=== PATIENT | female | born 1970 | race Caucasian/White ===

== ENCOUNTER 2021-06-17 20:45 | Emergency (ER) | payer BC, MEDICAID ==
[2021-06-17] MEDS ORDERED: PROTONIX 40 MG IV IV ONE ×2 (21:01→21:13)
[2021-06-17] MEDS ORDERED: Zofran 4 MG/2 ML VIAL IV ONE (21:01)
[2021-06-17] MEDS ORDERED: Sodium Chloride 0.9% 1000 ML 1,000 ML IV STA ×2 (21:01→23:20)
--- NOTE | 2021-06-17 21:09 | ERPHSYRPT ---
- History of Present Illness Time Seen by Provider: 06/17/21 21:01 Historian: patient Exam Limitations: no limitations Physician History: 51-year-old female with history of colon cancer status post resection presented in the ER with chief complaint of off-and-on abdominal pain with vomiting/diarrhea since . Patient reported multiple episodes of nonprojectile, nonbilious vomiting without hematemesis and multiple loose stools. She also reports worsening of her symptoms for the last couple of days. Unable to hold anything down. She also has low-grade fever and chills. Today she started to have some shortness of breath and chest discomfort. Patient is tachycardic on presentation with heart rate in 150s and shortness of breath with difficulty completing a full sentence. Timing/Duration: week(s), intermittent, gradual onset, worse Activities at Onset: rest Quality: aching, dullness Abdominal Pain Onset Location: RUQ, RLQ, periumbilical Pain Radiation: no radiation Severity of Pain-Max: moderate Severity of Pain-Current: moderate Modifying Factors: Worsens With: vomiting Associated Symptoms: diarrhea, fever/chills, fatigue, nausea, shortness of breath, vomiting, weakness Allergies/Adverse Reactions: No Known Drug Allergies Allergy (Unverified 06/17/21 21:06) Home Medications: No Reportable Medications [No Reported Medications] 06/17/21 [History] - Review of Systems Constitutional: Fever, Chills, Fatigue, Weakness Eyes: No Symptoms Ears, Nose, & Throat: No Symptoms Respiratory: Cough, Dyspnea, Dyspnea on Exertion ([place]) Cardiac: Chest Pain, Palpitations Abdominal/Gastrointestinal: Abdominal Pain, Nausea, Vomiting, Diarrhea Genitourinary Symptoms: No Symptoms Musculoskeletal: No Symptoms Skin: No Symptoms Neurological: No Symptoms Psychological: No Symptoms Endocrine: No Symptoms Hematologic/Lymphatic: No Symptoms Immunological/Allergic: No Symptoms - Nursing Vital Signs Nursing Vital Signs: Initial Vital Signs Temperature 101.1 F 06/17/21 20:46 Pulse Rate 145 H 06/17/21 20:46 Respiratory Rate 20 06/17/21 20:46 Blood Pressure 141/92 06/17/21 20:46 O2 Sat by Pulse Oximetry 95 06/17/21 20:46 Pain Scale Pain Intensity 4 - Physical Exam General Appearance: mild distress, alert, anxiety Eye Exam: PERRL/EOMI, eyes nml inspection Ears, Nose, Throat Exam: TMs normal, dry mucous membranes, pharyngeal erythema Neck Exam: normal inspection, non-tender, supple, full range of motion Respiratory Exam: normal breath sounds, lungs clear Cardiovascular Exam: normal heart sounds, tachycardia Gastrointestinal/Abdomen Exam: soft, tenderness (Right upper and lower quadrant), guarding, No normal bowel sounds Back Exam: normal inspection, normal range of motion Extremity Exam: normal inspection, normal range of motion Neurologic Exam: alert, oriented x 3, cooperative Skin Exam: normal color SpO2 Interpretation: normal SpO2: 96 O2 Delivery: Room Air - Course EKG Interpreted by Me: RATE ([id number]), Sinus Tach, NORMAL AXIS, NORMAL INTERVALS, Q-wave (Inferolateral), Non-specific ST Changes Ordered Tests: Active Orders 24 hr Category Date Time Status EKG-ER Only STAT Care 06/17/21 21:01 Active IV Insertion STAT Care 06/17/21 21:01 Active NPO (ED) STAT Care 06/17/21 21:01 Active ABDOMEN AND PELVIS W CONTRAST [CT] Stat Exams 06/17/21 21:02 Taken CHEST WITH CONTRAST [CT] Stat Exams 06/17/21 21:03 Taken BLOOD CULTURE Stat Lab 06/17/21 21:20 Received CBC W DIFF Stat Lab 06/17/21 21:20 Completed CMP Stat Lab 06/17/21 21:20 Completed LIPASE Stat Lab 06/17/21 21:20 Completed Lactic Acid Stat Lab 06/17/21 21:01 Completed Lactic Acid Stat Lab 06/18/21 00:22 Completed MAGNESIUM Stat Lab 06/17/21 21:20 Completed TROPONIN Q3H Lab 06/17/21 21:20 Completed TROPONIN Q3H Lab 06/18/21 00:15 Ordered TROPONIN Q3H Lab 06/18/21 03:15 Ordered TROPONIN Q3H Lab 06/18/21 06:15 Ordered TROPONIN Q3H Lab 06/18/21 09:15 Ordered UA W/RFX UR CULTURE Stat Lab 06/17/21 21:02 Ordered Medication Summary Generic Name Dose Route Start Last Admin Trade Name Freq PRN Reason Stop Dose Admin Potassium Chloride 20 meq in 100 mls @ 50 mls/hr 06/17/21 23:45 06/18/21 00:21 Potassium Chloride 20 Meq In Water 100ml IV 06/18/21 03:44 50 mls/hr Q2H CRISS Administration Potassium Chloride/Sodium Chloride 1,000 mls @ 125 mls/hr 06/17/21 23:45 Sodium Chloride 0.9% W/ 20 Meq Kcl/Liter IV 07/17/21 23:44 .Q8H CRISS Discontinued Medications Generic Name Dose Route Start Last Admin Trade Name Jamesq PRN Reason Stop Dose Admin Acetaminophen 975 mg 06/17/21 21:14 06/17/21 21:16 Acetaminophen 325 Mg Tablet PO 06/17/21 21:15 975 mg STAT STA Administration Acetaminophen Confirm 06/17/21 21:13 Acetaminophen 325 Mg Tablet Administered 06/17/21 21:14 Dose 975 mg .ROUTE .STK-MED ONE Sodium Chloride 1,000 mls @ 999 mls/hr 06/17/21 21:01 06/17/21 21:15 Sodium Chloride 0.9% 1000 Ml IV 06/17/21 22:01 999 mls/hr .Q1H1M STA Administration Sodium Chloride Confirm 06/17/21 21:13 Sodium Chloride 0.9% 1000 Ml Administered 06/17/21 21:14 Dose 1,000 mls @ ud .ROUTE .STK-MED ONE Sodium Chloride 1,000 mls @ 999 mls/hr 06/17/21 23:20 06/17/21 23:27 Sodium Chloride 0.9% 1000 Ml IV 06/18/21 00:20 999 mls/hr .Q1H1M STA Administration Sodium Chloride Confirm 06/17/21 23:19 Sodium Chloride 0.9% 1000 Ml Administered 06/17/21 23:20 Dose 1,000 mls @ ud .ROUTE .STK-MED ONE Piperacillin Sod/Tazobactam 100 mls @ 200 mls/hr 06/17/21 23:54 06/18/21 00:21 Sod 3.375 gm/ Sodium Chloride IV 06/18/21 00:23 200 mls/hr STAT ONE Administration Sodium Chloride Confirm 06/18/21 00:15 Sodium Chloride 100ml Mini-Bag Plus Administered 06/18/21 00:16 Dose 100 mls @ ud IV .STK-MED ONE Ondansetron HCl 4 mg 06/17/21 21:01 06/17/21 21:15 Ondansetron Hcl 4 Mg/2 Ml Vial IV 06/17/21 21:02 4 mg STAT ONE Administration Ondansetron HCl Confirm 06/17/21 21:13 Ondansetron Hcl 4 Mg/2 Ml Vial Administered 06/17/21 21:14 Dose 4 mg .ROUTE .STK-MED ONE Pantoprazole Sodium 40 mg 06/17/21 21:01 06/17/21 21:15 Pantoprazole 40 Mg Vial IV 06/17/21 21:02 40 mg STAT ONE Administration Pantoprazole Sodium Confirm 06/17/21 21:13 Pantoprazole 40 Mg Vial Administered 06/17/21 21:14 Dose 40 mg IV .STK-MED ONE Piperacillin Sod/Tazobactam Sod Confirm 06/18/21 00:15 Piperacillin/Tazobactam Sodium 3.375 Gm Vial Administered 06/18/21 00:16 Dose 3.375 gm IV .STK-MED ONE Lab/Rad Data: Laboratory Result Diagrams 06/17/21 21:20 06/17/21 21:20 Laboratory Results 06/18/21 06/17/21 06/17/21 Range/Units 00:22 21:20 21:20 WBC (4.0-10.5) K/mm3 RBC (4.1-5.4) M/mm3 Hgb (12.0-16.0) gm/dl Hct (35-47) % MCV (78-100) fl MCH (26-32) pg MCHC (32-36) g/dl RDW (11.5-14.0) % Plt Count (150-450) K/mm3 MPV (7.5-11.0) fl Gran % (36.0-66.0) % Eos # (Auto) (0-0.5) Absolute Lymphs (auto) (1.0-4.6) Absolute Monos (auto) (0.0-1.3) Lymphocytes % (24.0-44.0) % Monocytes % (0.0-12.0) % Eosinophils % (0.00-5.0) % Basophils % (0.0-0.4) % Absolute Granulocytes (1.4-6.9) Basophils # (0-0.4) Sodium 139 (137-145) mmol/L Potassium 3.1 L (3.5-5.1) mmol/L Chloride 96 L (98-107) mmol/L Carbon Dioxide 29 (22-30) mmol/L Anion Gap 16.8 H (5-15) MEQ/L BUN 14 (7-17) mg/dL Creatinine 1.12 H (0.52-1.04) mg/dL Estimated GFR 54.5 ML/MIN Glucose 145 H (74-106) mg/dL Lactic Acid 0.9 (0.4-2.0) Calcium 9.5 (8.4-10.2) mg/dL Magnesium 1.8 (1.6-2.3) mg/dL Total Bilirubin 1.40 H (0.2-1.3) mg/dL AST 41 H (14-36) U/L ALT 31 (0-35) U/L Alkaline Phosphatase 129 H (38-126) U/L Troponin I < 0.012 (0.000-0.034) ng/mL Serum Total Protein 6.8 (6.3-8.2) g/dL Albumin 3.9 (3.5-5.0) g/dL Lipase 57 (23-300) U/L 06/17/21 06/17/21 Range/Units 21:20 21:01 WBC 10.5 (4.0-10.5) K/mm3 RBC 5.05 (4.1-5.4) M/mm3 Hgb 14.9 (12.0-16.0) gm/dl Hct 45.5 (35-47) % MCV 90.1 (78-100) fl MCH 29.5 (26-32) pg MCHC 32.7 (32-36) g/dl RDW 13.2 (11.5-14.0) % Plt Count 256 (150-450) K/mm3 MPV 10.6 (7.5-11.0) fl Gran % 89.9 H (36.0-66.0) % Eos # (Auto) 0.06 (0-0.5) Absolute Lymphs (auto) 0.79 L (1.0-4.6) Absolute Monos (auto) 0.18 (0.0-1.3) Lymphocytes % 7.6 L (24.0-44.0) % Monocytes % 1.7 (0.0-12.0) % Eosinophils % 0.6 (0.00-5.0) % Basophils % 0.2 (0.0-0.4) % Absolute Granulocytes 9.41 H (1.4-6.9) Basophils # 0.02 (0-0.4) Sodium (137-145) mmol/L Potassium (3.5-5.1) mmol/L Chloride (98-107) mmol/L Carbon Dioxide (22-30) mmol/L Anion Gap (5-15) MEQ/L BUN (7-17) mg/dL Creatinine (0.52-1.04) mg/dL Estimated GFR ML/MIN Glucose (74-106) mg/dL Lactic Acid 3.3 H (0.4-2.0) Calcium (8.4-10.2) mg/dL Magnesium (1.6-2.3) mg/dL Total Bilirubin (0.2-1.3) mg/dL AST (14-36) U/L ALT (0-35) U/L Alkaline Phosphatase (38-126) U/L Troponin I (0.000-0.034) ng/mL Serum Total Protein (6.3-8.2) g/dL Albumin (3.5-5.0) g/dL Lipase (23-300) U/L - Progress Progress: improved, pain not gone completely, re-examined Progress Note: 06/18/21 00:40 51-year-old is evaluated for right-sided abdominal pain with vomiting, fever with tachycardia and some shortness of breath. She is given fluid bolus x2 and her heart rate improved in 90s. She has a normal white count, lactate of 3.3, mild hypokalemia for which she is getting replacement. Obtain CTA chest which is negative for pulmonary embolismed [place] but has some septal patchy groundglass opacity around the lungs suspicious for aspiration pneumonitis versus atypical pneumonia and CT abdomen pelvis with contrast showed perforated appendicitis with periappendiceal abscess. She is given a dose of Zosyn. Discussed with Dr. Carmichael, recommended admission but no beds are available here and at [facility]. Called [facility], discussed with Dr. Fernandez, reviewed history, work-up and patient is accepted for transfer. Plan discussed with patient which he understand and agrees with it. Discussed with : Enrike Cottrell Counseled pt/family regarding: lab results, diagnosis, rad results - Departure Departure Disposition: Transfer Clinical Impression: Perforated appendix, Atypical pneumonia, Hypokalemia Condition: Stable Critical Care Time: Yes Critical Care Time(excluding separately billable procedures): Critical 30-74 mins Referrals: Provider,Unknown [NON-STAFF PHY W/O PRIVILEGES] - Follow up/PCP as directed
[2021-06-17] MEDS ORDERED: Zofran 4 MG/2 ML VIAL ONE (21:13)
[2021-06-17] MEDS ORDERED: TYLENOL 325 MG ONE (21:13)
[2021-06-17] MEDS ORDERED: Sodium Chloride 0.9% 1000 ML 1,000 ML ONE ×2 (21:13→23:19)
[2021-06-17] MEDS ORDERED: TYLENOL 325 MG PO STA (21:14)
[2021-06-17 21:38] LABS: Absolute Neutrophil Ct (ANC) 9.41 (1.4-6.9); BASOPHIL % 0.2 % (0.0-0.4); Basophil (Absolute #) 0.02 (0-0.4); Eosinophil % 0.6 % (0.00-5.0); Eosinophil (Absolute #) 0.06 (0-0.5); Hematocrit 45.5 % (35-47); Hemoglobin 14.9 gm/dl (12.0-16.0); Lymphocyte (Absolute #) 0.79 (1.0-4.6); Lymphocytes % 7.6 % (24.0-44.0); Mean Cell Volume 90.1 fl (78-100); Mean Corpuscular Hemoglobin 29.5 pg (26-32); Mean Corpuscular Hgb Concent. 32.7 g/dl (32-36); Mean Platelet Volume 10.6 fl (7.5-11.0); Monocyte (Absolute #) 0.18 (0.0-1.3); Monocytes % 1.7 % (0.0-12.0); Neutrophil % 89.9 % (36.0-66.0); Platelet Count 256 K/mm3 (150-450); Red Blood Count 5.05 M/mm3 (4.1-5.4); Red Cell Distribution Width 13.2 % (11.5-14.0); White Blood Count 10.5 K/mm3 (4.0-10.5)
[2021-06-17 21:49] LABS: ALBUMIN 3.9 g/dL (3.5-5.0); ANION GAP 16.8 MEQ/L (5-15); BILIRUBIN,TOTAL 1.4 mg/dL (0.2-1.3); Calcium 9.5 mg/dL (8.4-10.2); Creatinine 1 1.12 mg/dL (0.52-1.04); EST GLOMERULAR FILTRATION RATE 54.5 ML/MIN; MAGNESIUM 1.8 mg/dL (1.6-2.3); Total Protein 6.8 g/dL (6.3-8.2)
[2021-06-17 21:51] LABS: Potassium 3.1 mmol/L (3.5-5.1)
[2021-06-17] MEDS ORDERED: Sodium Chloride 0.9% W/ 20 mEq KCl/LITER 1,000 ML IV SCH (23:45)
[2021-06-17] MEDS ORDERED: POTASSIUM CHLORIDE 20 mEq IN WATER 100ML 20 MEQ/100 ML BAG IV SCH (23:45)
[2021-06-17] MEDS ORDERED: Zosyn 3.375 GM Vial 3.375 GM in Sodium Chloride 100ML MINI-BAG PLUS 100 ML IV ONE (23:54)
[2021-06-18] MEDS ORDERED: Sodium Chloride 100ML MINI-BAG PLUS 100 ML IV ONE (00:15)
[2021-06-18] MEDS ORDERED: Zosyn 3.375 GM Vial IV ONE (00:15)
[2021-06-18] MEDS ORDERED: POTASSIUM CHLORIDE 20 mEq IN WATER 100ML 100 ML IV ONE (00:16)
[2021-06-18 01:07] VITALS: BP 115/70; PULSE 87; O2SAT 95
--- NOTE | 2021-06-18 07:49 | XRAY ---
Indication: Fever, nausea, vomiting, and diarrhea. History of colon cancer 2000 with bowel resection. Multiple contiguous axial images obtained through the chest using 80 cc Isovue 370 contrast and PE protocol. Comparison: None. There is suboptimal opacification of the pulmonary arteries limiting evaluation for pulmonary embolus. No obvious pulmonary embolus. Heart not enlarged. Aorta is normal in course and caliber. No pathologic mediastinal/hilar lymphadenopathy. Lungs demonstrates minimal bilateral diffuse peripheral patchy groundglass airspace disease without consolidation/effusion. Mild bibasilar dependent atelectasis. Bony thorax intact. CT abdomen/pelvis reported separately. Impression: 1. Pulmonary embolus evaluation limited due to suboptimal opacification. No obvious pulmonary embolus. 2. Bilateral patchy airspace disease. Commonly reported imaging features of Covid 19 pneumonia are present. Other processes such as influenza pneumonia and organizing pneumonia, as can be seen with drug toxicity and connective tissue disease, can cause a similar imaging pattern. Comment: Preliminary interpretation made by [facility]. No critical discrepancy.
--- NOTE | 2021-06-18 07:53 | XRAY ---
Indication: Fever, nausea, vomiting, and diarrhea. History of colon cancer 1999 with bowel resection. Multiple contiguous axial images obtained through the abdomen and pelvis using 80 cc Isovue 370 contrast. Comparison: None. CT chest reported severally. Noncontrasted stomach and bowel loops appear nonobstructed. Abnormal prominent enhancing appendix up to 11 mm diameter with periappendiceal stranding favoring appendicitis. Tip of appendix demonstrates a 3.3 cm fluid collection with peripheral stranding favoring abscess. No free air. The right lobe liver demonstrates a 4 mm cyst. Remaining liver, gallbladder, pancreas, spleen, adrenal glands, kidneys, ureters, bladder, uterus, and aorta are unremarkable. No pathologic retroperitoneal lymphadenopathy. Osseous structures intact. Impression: 1. CT findings favoring acute pancreatitis with periappendiceal abscess. 2. Incidental tiny hepatic cyst. Comment: Preliminary interpretation made by [facility]. No critical discrepancy.
== END 2021-06-18 01:25 | disposition short-term general hospital (02) ==
LOC: ED 20:45
DX: K35.33 Acute appendicitis with perforation, localized peritonitis, and gangrene, with abscess (principal); J18.9 Pneumonia, unspecified organism; E87.6 Hypokalemia; R10.33 Periumbilical pain; R11.2 Nausea with vomiting, unspecified; R19.7 Diarrhea, unspecified; R50.9 Fever, unspecified; R00.0 Tachycardia, unspecified
CPT/HCPCS: 36000; 36415; 71260; 74177; 80053; 83605; 83690; 83735; 84484; 85025; 87040; 93005; 96374; 96375; 99285; 99291; J2405; J3480; A9270-GY

== ENCOUNTER 2022-04-20 14:44 | Observation (INO) | payer MEDICAID, OTHER ==
[2022-04-20] MEDS ORDERED: CLONIDINE 0.1 MG TABLET PO ONE (15:27)
--- NOTE | 2022-04-20 15:29 | ERPHSYRPT ---
- History of Present Illness Time Seen by Provider: 04/20/22 14:58 Source: patient Exam Limitations: no limitations Patient Subjective Stated Complaint: HTN Triage Nursing Assessment: Patient ambulated back to ED and transferred self to bed. Patient A+O X3. Patient's skin pink, warm and dry. Patient complains of HTN for the past two days. Patient states she had steroid injections in cinda knees on 04/18/2022. Patient states she has been jittery since. Patient states her blood pressure last taken was 149/110. Patient denies pain or discomfort. Physician History: 52 years old female with history of osteoarthritis needing intra-articular injections in both knees couple of days ago where it was found that her blood pr essure was elevated, has been monitoring at home and today was 188/110 without any chest pain palpitations shortness of breath. Denies any dizziness lightheadedness, blurry vision, difficulty speech or focal numbness tingling weakness. No abdominal pain nausea or vomiting. Patient reports after checking her blood pressure repeatedly she was really anxious. She takes essential oils and beet roots but no other medications. Timing/Duration: day(s), intermittent, worse Severity: moderate Associated Symptoms: denies symptoms Allergies/Adverse Reactions: No Known Drug Allergies Allergy (Verified 04/20/22 14:51) Home Medications: No Reportable Medications [No Reported Medications] 06/17/21 [History] Hx Tetanus, Diphtheria Vaccination/Date Given: No Hx Influenza Vaccination/Date Given: No Hx Pneumococcal Vaccination/Date Given: No Immunizations Up to Date: Yes Travel Risk - International Travel Have you traveled outside of the country in past 3 weeks: No - Coronavirus Screening Are you exhibiting any of the following symptoms?: No Close contact with a COVID-19 positive Pt in past 14-21 Days: No - Vaccine Status Have you recieved a Covid-19 vaccination: No - Review of Systems Constitutional: No Symptoms Eyes: No Symptoms Ears, Nose, & Throat: No Symptoms Respiratory: No Symptoms Cardiac: No Symptoms Abdominal/Gastrointestinal: No Symptoms Genitourinary Symptoms: No Symptoms Musculoskeletal: Arthralgias Skin: No Symptoms Neurological: No Symptoms Endocrine: No Symptoms Hematologic/Lymphatic: No Symptoms Immunological/Allergic: No Symptoms - Past Medical History Pertinent Past Medical History: Yes Neurological History: Migraines ENT History: No Pertinent History Cardiac History: No Pertinent History Respiratory History: No Pertinent History Endocrine Medical History: No Pertinent History Musculoskeletal History: Arthritis GI Medical History: Colorectal Cancer, GERD History: No Pertinent History Psycho-Social History: No Pertinent History Female Reproductive Disorders: No Pertinent History - Past Surgical History Past Surgical History: Yes Neuro Surgical History: No Pertinent History Cardiac: No Pertinent History Respiratory: No Pertinent History Gastrointestinal: Bowel Surgery, Colon Resection Genitourinary: No Pertinent History Musculoskeletal: No Pertinent History Female Surgical History: Other Other Surgical History: ovaries removed - Social History Smoking Status: Never smoker Exposure to second hand smoke: Yes Drug Use: none Patient Lives Alone: No - Nursing Vital Signs Nursing Vital Signs: Initial Vital Signs Temperature 97.8 F 04/20/22 14:52 Pulse Rate 93 H 04/20/22 14:52 Respiratory Rate 18 04/20/22 14:52 Blood Pressure 174/103 04/20/22 14:52 O2 Sat by Pulse Oximetry 99 04/20/22 14:52 Pain Scale Pain Intensity 0 - Physical Exam General Appearance: no apparent distress, alert Eye Exam: PERRL/EOMI, eyes nml inspection Ears, Nose, Throat Exam: normal ENT inspection, TMs normal, pharynx normal Neck Exam: normal inspection, non-tender, supple, full range of motion Respiratory Exam: normal breath sounds, lungs clear Cardiovascular Exam: regular rate/rhythm, normal heart sounds Gastrointestinal/Abdomen Exam: soft, normal bowel sounds, No tenderness Back Exam: normal inspection, normal range of motion Extremity Exam: normal inspection, normal range of motion Neurologic Exam: alert, oriented x 3, cooperative, artist relationship manager II-XII nml as tested, nml cerebellar function, nml station & gait, sensation nml, No normal mood/affect (Anxious) Skin Exam: normal color SpO2 Interpretation: normal SpO2: 99 O2 Delivery: Room Air Ordered Tests: Active Orders 24 hr Category Date Time Status EKG-ER Only STAT Care 04/20/22 15:26 Active Telemetry q4h Care 04/20/22 16:25 Active CHEST 1 VIEW (PORTABLE) Stat Exams 04/20/22 15:26 Completed CBC W DIFF Stat Lab 04/20/22 15:15 Completed CK-Creatinine Phosphokinase Stat Lab 04/20/22 15:15 Completed CMP Stat Lab 04/20/22 15:15 Completed NT PRO BNP Stat Lab 04/20/22 15:15 Completed TROPONIN Q4H Lab 04/20/22 15:15 Completed TROPONIN Q4H Lab 04/20/22 19:30 Ordered TROPONIN Q4H Lab 04/20/22 23:30 Ordered Medication Summary Generic Name Dose Route Start Last Admin Trade Name Tim PRN Reason Stop Dose Admin Aspirin 324 mg 04/20/22 16:58 Aspirin 81 Mg Tab.Chew PO 04/20/22 16:59 STAT ONE Potassium Chloride 20 meq in 100 mls @ 50 mls/hr 04/20/22 16:30 04/20/22 16:32 Potassium Chloride 20 Meq In Water 100ml IV 04/20/22 20:29 Not Given Q2H CRISS Discontinued Medications Generic Name Dose Route Start Last Admin Trade Name Tim PRN Reason Stop Dose Admin Clonidine 0.1 mg 04/20/22 15:27 04/20/22 15:42 Clonidine Hcl 0.1 Mg Tablet PO 04/20/22 15:28 0.1 mg STAT ONE Administration Clonidine Confirm 04/20/22 15:37 Clonidine Hcl 0.1 Mg Tablet Administered 04/20/22 15:38 Dose 0.1 mg .ROUTE .STK-MED ONE Potassium Chloride 40 meq 04/20/22 16:25 04/20/22 16:31 Potassium Chloride Tab 10 Meq Tab PO 04/20/22 16:26 Not Given STAT ONE Lab/Rad Data: Laboratory Result Diagrams 04/20/22 15:15 04/20/22 15:15 Laboratory Results 04/20/22 04/20/22 04/20/22 Range/Units 15:15 15:15 15:15 WBC 12.4 H (4.0-10.5) x10^3/uL RBC 4.64 (4.1-5.4) x10^6/uL Hgb 13.9 (12.0-16.0) g/dL Hct 41.3 (35-47) % MCV 89.0 (78-100) fL MCH 30.0 (26-32) pg MCHC 33.7 (32-36) g/dL RDW 12.4 (11.5-14.0) % Plt Count 280 (150-450) x10^3/uL MPV 10.6 (7.5-11.0) fL Gran % 86.4 H (36.0-66.0) % Immature Gran % (Auto) 1.0 H (0.00-0.4) % Nucleat RBC Rel Count 0.0 (0.00-0.1) % Eos # (Auto) 0 (0-0.5) x10^3/uL Immature Gran # (Auto) 0.13 H (0.00-0.03) x10^3u/L Absolute Lymphs (auto) 1.10 (1.0-4.6) x10^3/uL Absolute Monos (auto) 0.44 (0.0-1.3) x10^3/uL Absolute Nucleated RBC 0.00 (0.00-0.01) x10^3u/L Lymphocytes % 8.9 L (24.0-44.0) % Monocytes % 3.6 (0.0-12.0) % Eosinophils % 0.0 (0.00-5.0) % Basophils % 0.1 (0.0-0.4) % Absolute Granulocytes 10.71 H (1.4-6.9) x10^3/uL Basophils # 0.01 (0-0.4) x10^3/uL Sodium 139 (137-145) mmol/L Potassium 3.7 (3.5-5.1) mmol/L Chloride 103 (98-107) mmol/L Carbon Dioxide 29 (22-30) mmol/L Anion Gap 10.9 (5-15) MEQ/L BUN 25 H (7-17) mg/dL Creatinine 0.89 (0.52-1.04) mg/dL Estimated GFR > 60.0 ML/MIN Glucose 113 H (74-106) mg/dL Calcium 9.2 (8.4-10.2) mg/dL Total Bilirubin 0.90 (0.2-1.3) mg/dL AST 19 (14-36) U/L ALT 17 (0-35) U/L Alkaline Phosphatase 66 (38-126) U/L Creatine Kinase 61 (30-135) U/L Troponin I 0.051 H* (0.000-0.034) ng/mL NT-Pro-B Natriuret Pep 225 (0-900) pg/mL Serum Total Protein 7.5 (6.3-8.2) g/dL Albumin 4.5 (3.5-5.0) g/dL - Progress Progress: unchanged Progress Note: 04/20/22 16:59 Patient does not have any chest pain. EKG normal sinus rhythm without any ST elevations. Chest x-ray negative for any acute cardiopulmonary findings. Init ial troponin 0.051. Patient is given clonidine and pressure improved in 150s. She does not have any respiratory distress/difficulty breathing at all. Elevation in troponin could be secondary to uncontrolled hypertension. Discussed with , reviewed history, work-up and patient is excepted for admission. Counseled pt/family regarding: lab results, diagnosis, rad results - Departure Departure Disposition: Observation Clinical Impression: Uncontrolled hypertension, Elevated troponin Condition: Stable Critical Care Time: No Referrals: DOCTOR,NO FAMILY [Primary Care Provider] - Follow up/PCP as directed
[2022-04-20 15:33] LABS: Absolute Neutrophil Ct (ANC) 10.71 x10^3/uL (1.4-6.9); Basophil (Absolute #) 0.01 x10^3/uL (0-0.4); Eosinophil (Absolute #) 0 x10^3/uL (0-0.5); Hematocrit 41.3 % (35-47); Hemoglobin 13.9 g/dL (12.0-16.0); Lymphocytes % 8.9 % (24.0-44.0); Mean Corpuscular Hgb Concent. 33.7 g/dL (32-36); Mean Platelet Volume 10.6 fL (7.5-11.0); Monocyte (Absolute #) 0.44 x10^3/uL (0.0-1.3); Monocytes % 3.6 % (0.0-12.0); Neutrophil % 86.4 % (36.0-66.0); Platelet Count 280 x10^3/uL (150-450); Red Blood Count 4.64 x10^6/uL (4.1-5.4); Red Cell Distribution Width 12.4 % (11.5-14.0); White Blood Count 12.4 x10^3/uL (4.0-10.5)
[2022-04-20] MEDS ORDERED: CLONIDINE 0.1 MG TABLET ONE (15:37)
[2022-04-20 15:56] LABS: ALBUMIN 4.5 g/dL (3.5-5.0); ALKALINE PHOSPHATASE 66 U/L (38-126); ANION GAP 10.9 MEQ/L (5-15); BLOOD UREA NITROGEN 25 mg/dL (7-17); CHLORIDE 103 mmol/L (98-107); CK-Creatinine Phosphokinase 61 U/L (30-135); Calcium 9.2 mg/dL (8.4-10.2); Carbon Dioxide 29 mmol/L (22-30); Creatinine 1 0.89 mg/dL (0.52-1.04); EST GLOMERULAR FILTRATION RATE > 60.0 ML/MIN; Glucose 113 mg/dL (74-106); NT PRO BNP 225 pg/mL (0-900); Potassium 3.7 mmol/L (3.5-5.1); SGOT/AST 19 U/L (14-36); SGPT/ALT 17 U/L (0-35); SODIUM 139 mmol/L (137-145); Total Protein 7.5 g/dL (6.3-8.2)
[2022-04-20] MEDS ORDERED: Klor Con PO ONE (16:25)
[2022-04-20] MEDS: POTASSIUM CHLORIDE 20 mEq IN WATER 100ML 20 MEQ/100 ML BAG IV SCH ×2 (16:32→18:18)
--- NOTE | 2022-04-20 16:33 | XRAY ---
Indication: High blood pressure. Comparison: None Portable chest demonstrates normal heart, lungs, and bony thorax.
[2022-04-20] MEDS ORDERED: BABY ASPIRIN 81 MG CHEW PO ONE (16:58)
[2022-04-20] MEDS ORDERED: BABY ASPIRIN 81 MG CHEW ONE (17:01)
[2022-04-20 17:59] LABS: INFLUENZA A NEGATIVE (NEGATIVE); INFLUENZA B NEGATIVE (NEGATIVE); RESPIRATORY SYNCTIAL VIRUS NEGATIVE (Negative); SARS-CoV-2 Xpert Express NEGATIVE (NEGATIVE)
[2022-04-20] MEDS ORDERED: TYLENOL 325 MG PO PRN (18:29)
[2022-04-20] MEDS ORDERED: MORPHINE SULFATE 2 MG INJ IV PRN (18:29)
[2022-04-20] MEDS ORDERED: Zofran 4 MG/2 ML VIAL IV PRN (18:29)
[2022-04-20] MEDS ORDERED: DUONEB 0.5-3 MG/3 ml Neb IH PRN (18:29)
[2022-04-20] MEDS ORDERED: TRANDATE 20 MG/4 ML SYRINGE IV ONE (19:49)
[2022-04-20] MEDS: TRANDATE 20 MG/4 ML SYRINGE IV SCH (19:51)
[2022-04-20] MEDS ORDERED: Pepcid 20 MG PO ONE (21:00)
[2022-04-21 06:14] LABS: Absolute Neutrophil Ct (ANC) 6.94 x10^3/uL (1.4-6.9); Basophil (Absolute #) 0.01 x10^3/uL (0-0.4); Eosinophil (Absolute #) 0 x10^3/uL (0-0.5); Hematocrit 38.3 % (35-47); Hemoglobin 12.5 g/dL (12.0-16.0); Lymphocytes % 9.8 % (24.0-44.0); Mean Cell Volume 91.4 fL (78-100); Mean Corpuscular Hemoglobin 29.8 pg (26-32); Mean Corpuscular Hgb Concent. 32.6 g/dL (32-36); Mean Platelet Volume 10.6 fL (7.5-11.0); Monocyte (Absolute #) 0.34 x10^3/uL (0.0-1.3); Monocytes % 4.2 % (0.0-12.0); Platelet Count 223 x10^3/uL (150-450); Red Blood Count 4.19 x10^6/uL (4.1-5.4); Red Cell Distribution Width 12.3 % (11.5-14.0); White Blood Count 8.2 x10^3/uL (4.0-10.5)
[2022-04-21 06:29] LABS: ALBUMIN 3.9 g/dL (3.5-5.0); ALKALINE PHOSPHATASE 54 U/L (38-126); ANION GAP 8.8 MEQ/L (5-15); BLOOD UREA NITROGEN 26 mg/dL (7-17); CHLORIDE 104 mmol/L (98-107); Calcium 8.7 mg/dL (8.4-10.2); Carbon Dioxide 29 mmol/L (22-30); Creatinine 1 0.89 mg/dL (0.52-1.04); EST GLOMERULAR FILTRATION RATE > 60.0 ML/MIN; Glucose 132 mg/dL (74-106); Potassium 3.6 mmol/L (3.5-5.1); SGOT/AST 13 U/L (14-36); SGPT/ALT 15 U/L (0-35); SODIUM 138 mmol/L (137-145); Total Protein 6.5 g/dL (6.3-8.2)
[2022-04-21] MEDS ORDERED: TRANDATE 20 MG/4 ML SYRINGE IV PRN (06:50)
[2022-04-21] MEDS: TRANDATE 20 MG/4 ML SYRINGE IV SCH (06:50)
[2022-04-21] MEDS ORDERED: IMODIUM 2 MG PO PRN (07:25)
[2022-04-21] MEDS ORDERED: Pepcid 20 MG PO PRN (07:25)
[2022-04-21] MEDS: Protonix 40MG Tablet PO SCH (08:51)
[2022-04-21] MEDS: Lotrel 5/10 MG PO SCH (08:51)
[2022-04-21] MEDS: ENOXAPARIN SODIUM SQ SCH (08:52)
[2022-04-21] MEDS ORDERED: PROTONIX 40 MG IV IV SCH (10:00)
--- NOTE | 2022-04-21 11:03 | PCM.HP ---
History of Present Illness - Chief Complaint Chief Complaint: c/o very high blood pressure History of Present Illness: is a 52 year old female.with history of osteoarthritis needing intra- articular injections in both knees couple of days ago where it was found that her blood pressure was elevated, has been monitoring at home and today was 188/110 without any chest pain palpitations shortness of breath. Denies any dizziness lightheadedness, blurry vision, difficulty speech or focal numbness tingling weakness. No abdominal pain nausea or vomiting. Patient reports after checking her blood pressure repeatedly she was really anxious. She takes essential oils and beet roots but no other medications. Timing/Duration: day(s), intermittent, worse Severity: moderate Associated Symptoms: denies symptoms - Review of Systems Constitutional: No Fever, No Chills Eyes: No Symptoms Ears, Nose, & Throat: No Symptoms Respiratory: No Cough, No Short Of Breath Cardiac: No Chest Pain, No Edema, No Syncope Abdominal/Gastrointestinal: No Abdominal Pain, No Nausea, No Vomiting, No Diarrhea Genitourinary Symptoms: No Dysuria Musculoskeletal: No Back Pain, No Neck Pain Skin: No Rash Neurological: Headache, No Dizziness, No Focal Weakness, No Sensory Changes Psychological: No Symptoms Endocrine: No Symptoms Hematologic/Lymphatic: No Symptoms Immunological/Allergic: No Symptoms Medications & Allergies Home Medications: Home Medication List Famotidine [Pepcid] 20 mg PO BID PRN 04/20/22 [History Confirmed 04/20/22] Loperamide HCl 2 mg [Imodium 2 mg] 2 - 4 mg PO QID PRN 04/20/22 [History Confirmed 04/20/22] Allergies/Adverse Reactions: Allergies Allergy/AdvReac Type Severity Reaction Status Date / Time No Known Drug Allergies Allergy Verified 04/20/22 14:51 - Past Medical History Past Medical History: Yes Neurological History: Migraines ENT History: No Pertinent History Cardiac History: No Pertinent History Respiratory History: No Pertinent History Endocrine Medical History: No Pertinent History Musculoskelatal History: Arthritis GI Medical History: Colorectal Cancer, GERD History: No Pertinent History Pyscho-Social History: No Pertinent History Reproductive Disorders: No Pertinent History - Female History Are you now?: No - Past Surgical History Past Surgical History: Yes Neuro Surgical History: No Pertinent History Cardiac History: No Pertinent History Respiratory Surgery: No Pertinent History GI Surgical History: Bowel Surgery, Colon Resection Genitourinary Surgical Hx: No Pertinent History Musculskeletal Surgical Hx: No Pertinent History Female Surgical History: Other Other Surgical History: ovaries removed - Social History Smoking Status: Never smoker Exposure to second hand smoke: Yes Alcohol: None Drug Use: none - Physical Exam Vital Signs: Vital Signs - 24 hr Temp Pulse Resp BP BP Pulse Ox 04/21/22 08:00 97.7 F 82 19 158/85 96 04/21/22 04:00 97.5 F 76 16 137/84 98 04/20/22 23:47 97.8 F 69 18 172/91 98 04/20/22 22:14 69 172/97 04/20/22 20:34 80 18 98 04/20/22 20:00 98.9 F 88 18 187/98 97 04/20/22 19:51 187/98 88 L 04/20/22 18:32 97.8 F 68 20 199/113 95 04/20/22 18:05 97.8 F 62 20 143/96 98 04/20/22 17:08 64 20 156/106 98 04/20/22 17:01 99 04/20/22 16:04 70 20 157/100 98 04/20/22 14:52 97.8 F 93 H 18 174/103 99 General Appearance: no apparent distress, alert Neurologic Exam: alert, oriented x 3, cooperative, normal mood/affect, nml cerebellar function, nml station & gait, sensation nml, No motor deficits Eye Exam: PERRL/EOMI, eyes nml inspection Ears, Nose, Throat Exam: normal ENT inspection, TMs normal, pharynx normal, moist mucous membranes Neck Exam: normal inspection, non-tender, supple, full range of motion Respiratory Exam: normal breath sounds, lungs clear, No respiratory distress Cardiovascular Exam: regular rate/rhythm, normal heart sounds, normal peripheral pulses Gastrointestinal/Abdomen Exam: soft, normal bowel sounds, No tenderness, No mass Back Exam: normal inspection, normal range of motion, No CVA tenderness, No vertebral tenderness Extremity Exam: normal inspection, normal range of motion, pelvis stable Skin Exam: normal color, warm, dry, No rash Lymphatic Exam: No adenopathy Results - Labs Lab/Micro Results: Lab Results-Last 24 Hours 10/28/22 10/28/22 10/28/22 Range/Units 15:15 15:15 15:15 WBC 12.4 H (4.0-10.5) x10^3/uL RBC 4.64 (4.1-5.4) x10^6/uL Hgb 13.9 (12.0-16.0) g/dL Hct 41.3 (35-47) % MCV 89.0 (78-100) fL MCH 30.0 (26-32) pg MCHC 33.7 (32-36) g/dL RDW 12.4 (11.5-14.0) % Plt Count 280 (150-450) x10^3/uL MPV 10.6 (7.5-11.0) fL Gran % 86.4 H (36.0-66.0) % Immature Gran % (Auto) 1.0 H (0.00-0.4) % Nucleat RBC Rel Count 0.0 (0.00-0.1) % Eos # (Auto) 0 (0-0.5) x10^3/uL Immature Gran # (Auto) 0.13 H (0.00-0.03) x10^3u/L Absolute Lymphs (auto) 1.10 (1.0-4.6) x10^3/uL Absolute Monos (auto) 0.44 (0.0-1.3) x10^3/uL Absolute Nucleated RBC 0.00 (0.00-0.01) x10^3u/L Lymphocytes % 8.9 L (24.0-44.0) % Monocytes % 3.6 (0.0-12.0) % Eosinophils % 0.0 (0.00-5.0) % Basophils % 0.1 (0.0-0.4) % Absolute Granulocytes 10.71 H (1.4-6.9) x10^3/uL Basophils # 0.01 (0-0.4) x10^3/uL Sodium 139 (137-145) mmol/L Potassium 3.7 (3.5-5.1) mmol/L Chloride 103 (98-107) mmol/L Carbon Dioxide 29 (22-30) mmol/L Anion Gap 10.9 (5-15) MEQ/L BUN 25 H (7-17) mg/dL Creatinine 0.89 (0.52-1.04) mg/dL Estimated GFR > 60.0 ML/MIN Glucose 113 H (74-106) mg/dL Calcium 9.2 (8.4-10.2) mg/dL Total Bilirubin 0.90 (0.2-1.3) mg/dL AST 19 (14-36) U/L ALT 17 (0-35) U/L Alkaline Phosphatase 66 (38-126) U/L Creatine Kinase 61 (30-135) U/L Troponin I 0.051 H* (0.000-0.034) ng/mL NT-Pro-B Natriuret Pep 225 (0-900) pg/mL Serum Total Protein 7.5 (6.3-8.2) g/dL Albumin 4.5 (3.5-5.0) g/dL Influenza Type A Ag (NEGATIVE) Influenza Type B Ag (NEGATIVE) RSV (PCR) (Negative) SARS-CoV-2 (PCR) (NEGATIVE) 04/20/22 04/20/22 04/20/22 Range/Units 17:20 19:35 23:15 WBC (4.0-10.5) x10^3/uL RBC (4.1-5.4) x10^6/uL Hgb (12.0-16.0) g/dL Hct (35-47) % MCV (78-100) fL MCH (26-32) pg MCHC (32-36) g/dL RDW (11.5-14.0) % Plt Count (150-450) x10^3/uL MPV (7.5-11.0) fL Gran % (36.0-66.0) % Immature Gran % (Auto) (0.00-0.4) % Nucleat RBC Rel Count (0.00-0.1) % Eos # (Auto) (0-0.5) x10^3/uL Immature Gran # (Auto) (0.00-0.03) x10^3u/L Absolute Lymphs (auto) (1.0-4.6) x10^3/uL Absolute Monos (auto) (0.0-1.3) x10^3/uL Absolute Nucleated RBC (0.00-0.01) x10^3u/L Lymphocytes % (24.0-44.0) % Monocytes % (0.0-12.0) % Eosinophils % (0.00-5.0) % Basophils % (0.0-0.4) % Absolute Granulocytes (1.4-6.9) x10^3/uL Basophils # (0-0.4) x10^3/uL Sodium (137-145) mmol/L Potassium (3.5-5.1) mmol/L Chloride (98-107) mmol/L Carbon Dioxide (22-30) mmol/L Anion Gap (5-15) MEQ/L BUN (7-17) mg/dL Creatinine (0.52-1.04) mg/dL Estimated GFR ML/MIN Glucose (74-106) mg/dL Calcium (8.4-10.2) mg/dL Total Bilirubin (0.2-1.3) mg/dL AST (14-36) U/L ALT (0-35) U/L Alkaline Phosphatase (38-126) U/L Creatine Kinase (30-135) U/L Troponin I 0.057 H* 0.052 H* (0.000-0.034) ng/mL NT-Pro-B Natriuret Pep (0-900) pg/mL Serum Total Protein (6.3-8.2) g/dL Albumin (3.5-5.0) g/dL Influenza Type A Ag NEGATIVE (NEGATIVE) Influenza Type B Ag NEGATIVE (NEGATIVE) RSV (PCR) NEGATIVE (Negative) SARS-CoV-2 (PCR) NEGATIVE (NEGATIVE) 04/21/22 04/21/22 Range/Units 05:36 05:36 WBC 8.2 (4.0-10.5) x10^3/uL RBC 4.19 (4.1-5.4) x10^6/uL Hgb 12.5 (12.0-16.0) g/dL Hct 38.3 (35-47) % MCV 91.4 (78-100) fL MCH 29.8 (26-32) pg MCHC 32.6 (32-36) g/dL RDW 12.3 (11.5-14.0) % Plt Count 223 (150-450) x10^3/uL MPV 10.6 (7.5-11.0) fL Gran % 85.0 H (36.0-66.0) % Immature Gran % (Auto) 0.9 H (0.00-0.4) % Nucleat RBC Rel Count 0.0 (0.00-0.1) % Eos # (Auto) 0 (0-0.5) x10^3/uL Immature Gran # (Auto) 0.07 H (0.00-0.03) x10^3u/L Absolute Lymphs (auto) 0.80 L (1.0-4.6) x10^3/uL Absolute Monos (auto) 0.34 (0.0-1.3) x10^3/uL Absolute Nucleated RBC 0.00 (0.00-0.01) x10^3u/L Lymphocytes % 9.8 L (24.0-44.0) % Monocytes % 4.2 (0.0-12.0) % Eosinophils % 0.0 (0.00-5.0) % Basophils % 0.1 (0.0-0.4) % Absolute Granulocytes 6.94 H (1.4-6.9) x10^3/uL Basophils # 0.01 (0-0.4) x10^3/uL Sodium 138 (137-145) mmol/L Potassium 3.6 (3.5-5.1) mmol/L Chloride 104 (98-107) mmol/L Carbon Dioxide 29 (22-30) mmol/L Anion Gap 8.8 (5-15) MEQ/L BUN 26 H (7-17) mg/dL Creatinine 0.89 (0.52-1.04) mg/dL Estimated GFR > 60.0 ML/MIN Glucose 132 H (74-106) mg/dL Calcium 8.7 (8.4-10.2) mg/dL Total Bilirubin 0.80 (0.2-1.3) mg/dL AST 13 L (14-36) U/L ALT 15 (0-35) U/L Alkaline Phosphatase 54 (38-126) U/L Creatine Kinase (30-135) U/L Troponin I (0.000-0.034) ng/mL NT-Pro-B Natriuret Pep (0-900) pg/mL Serum Total Protein 6.5 (6.3-8.2) g/dL Albumin 3.9 (3.5-5.0) g/dL Influenza Type A Ag (NEGATIVE) Influenza Type B Ag (NEGATIVE) RSV (PCR) (Negative) SARS-CoV-2 (PCR) (NEGATIVE) - Radiology Impressions Radiology Exams & Impressions: Radiology Procedures Category Date Time Status CHEST 1 VIEW (PORTABLE) Stat Exams 04/20/22 15:26 Completed Assessment/Plan (1) Uncontrolled hypertension Current Visit: Yes Status: Acute Onset Date: ~04/20/22 Assessment & Plan: Chief Complaint Diagnosis Uncontrolled hypertension Allergies Allergy/AdvReac Type Severity Reaction Status Date / Time No Known Drug Allergies Allergy Verified 04/20/22 14:51 Vital Signs (Last 24 hours) Temp Pulse Resp BP BP Pulse Ox 04/21/22 08:00 97.7 F 82 19 158/85 96 04/21/22 04:00 97.5 F 76 16 137/84 98 04/20/22 23:47 97.8 F 69 18 172/91 98 04/20/22 22:14 69 172/97 04/20/22 20:34 80 18 98 04/20/22 20:00 98.9 F 88 18 187/98 97 04/20/22 19:51 187/98 88 L 04/20/22 18:32 97.8 F 68 20 199/113 95 04/20/22 18:05 97.8 F 62 20 143/96 98 04/20/22 17:08 64 20 156/106 98 04/20/22 17:01 99 04/20/22 16:04 70 20 157/100 98 04/20/22 14:52 97.8 F 93 H 18 174/103 99 Home Medications Medication Instructions Recorded Confirmed Last Taken Type Famotidine [Pepcid] 20 mg PO BID PRN 04/20/22 04/20/22 04/20/22 History Loperamide HCl 2 mg [Imodium 2 2 - 4 mg PO QID PRN 04/20/22 04/20/22 04/19/22 History mg] Current Medications Generic Name Dose Route Start Last Admin Trade Name Freq PRN Reason Stop Dose Admin Acetaminophen 650 mg 04/20/22 18:29 Acetaminophen 325 Mg Tablet PO 05/20/22 18:28 Q4H PRN PRN PAIN AND/OR FEVER Amlodipine/Benazepril HCl 2 cap 04/21/22 10:00 04/21/22 08:51 Amlodipine/Benzapril 5mg/10mg Capsule PO 05/21/22 09:59 2 cap DAILY CRISS Administration Enoxaparin Sodium 40 mg 04/21/22 10:00 04/21/22 08:52 Enoxaparin Sodium 40 Mg/0.4 Ml Syringe SQ 05/21/22 09:59 40 mg DAILY CRISS Administration Famotidine 20 mg 04/21/22 07:25 Famotidine 20 Mg Tablet PO 05/21/22 07:24 BID PRN PRN STOMACH UPSET Labetalol HCl 10 mg 04/21/22 06:50 Labetalol Hcl 20 Mg/4 Ml Disp.Syringe IV 05/21/22 06:48 Q8H PRN PRN ELEVATED BLOOD PRESSURE Loperamide HCl 0 mg 04/21/22 07:25 Loperamide Hcl 2 Mg Capsule PO 05/21/22 07:24 QID PRN PRN DIARRHEA Morphine Sulfate 2 mg 04/20/22 18:29 Morphine Sulfate 2 Mg/Ml Inj IV 04/25/22 18:28 Q4H PRN PRN PAIN Ondansetron HCl 4 mg 04/20/22 18:29 Ondansetron Hcl 4 Mg/2 Ml Vial IV 05/20/22 18:28 Q6H PRN PRN NAUSEA/VOMITING Pantoprazole Sodium 40 mg 04/21/22 10:00 04/21/22 08:51 Protonix (Pantoprazole) 40 Mg Tablet PO 05/21/22 09:59 40 mg DAILY CRISS Administration Discontinued Medications Generic Name Dose Route Start Last Admin Trade Name Freq PRN Reason Stop Dose Admin Albuterol/Ipratropium 3 ml 04/20/22 18:29 Ipratropium/Albuterol Sulfate 3 Ml Ampul.Neb IH 05/20/22 18:28 Q4HPRN PRN SHORTNESS OF BREATH/WHEEZING Aspirin 324 mg 04/20/22 16:58 04/20/22 17:04 Aspirin 81 Mg Tab.Chew PO 04/20/22 16:59 324 mg STAT ONE Administration Aspirin Confirm 04/20/22 17:01 Aspirin 81 Mg Tab.Chew Administered 04/20/22 17:02 Dose 324 mg .ROUTE .STK-MED ONE Clonidine 0.1 mg 04/20/22 15:27 04/20/22 15:42 Clonidine Hcl 0.1 Mg Tablet PO 04/20/22 15:28 0.1 mg STAT ONE Administration Clonidine Confirm 04/20/22 15:37 Clonidine Hcl 0.1 Mg Tablet Administered 04/20/22 15:38 Dose 0.1 mg .ROUTE .STK-MED ONE Famotidine 20 mg 04/20/22 21:00 04/20/22 21:02 Famotidine 20 Mg Tablet PO 04/20/22 21:01 20 mg ONCE ONE Administration Potassium Chloride 20 meq in 100 mls @ 50 mls/hr 04/20/22 16:30 04/20/22 18:18 Potassium Chloride 20 Meq In Water 100ml IV 04/20/22 20:29 50 mls/hr Q2H CRISS Administration Labetalol HCl 10 mg 04/20/22 20:00 04/21/22 06:50 Labetalol Hcl 20 Mg/4 Ml Disp.Syringe IV 05/20/22 19:59 Not Given Q8H CRISS Labetalol HCl Confirm 04/20/22 19:49 Labetalol Hcl 20 Mg/4 Ml Disp.Syringe Administered 04/20/22 19:50 Dose 20 mg IV .STK-MED ONE Pantoprazole Sodium 40 mg 04/21/22 10:00 Pantoprazole 40 Mg Vial IV 05/21/22 09:59 Q24H10 [facility] Potassium Chloride 40 meq 04/20/22 16:25 04/20/22 16:31 Potassium Chloride Tab 10 Meq Tab PO 04/20/22 16:26 Not Given STAT ONE Intake & Output (Last 24 hours) 04/18/22 04/19/22 04/20/22 04/21/22 11:59 11:59 11:59 11:59 Intake Total 1080 Balance 1080 Weight 109.1 kg Laboratory Results (Last 24 hours) 04/21/22 04/21/22 04/20/22 05:36 05:36 23:15 WBC 8.2 RBC 4.19 Hgb 12.5 Hct 38.3 MCV 91.4 MCH 29.8 MCHC 32.6 RDW 12.3 Plt Count 223 MPV 10.6 Gran % 85.0 H Immature Gran % (Auto) 0.9 H Nucleat RBC Rel Count 0.0 Eos # (Auto) 0 Immature Gran # (Auto) 0.07 H Absolute Lymphs (auto) 0.80 L Absolute Monos (auto) 0.34 Absolute Nucleated RBC 0.00 Lymphocytes % 9.8 L Monocytes % 4.2 Eosinophils % 0.0 Basophils % 0.1 Absolute Granulocytes 6.94 H Basophils # 0.01 Sodium 138 Potassium 3.6 Chloride 104 Carbon Dioxide 29 Anion Gap 8.8 BUN 26 H Creatinine 0.89 Estimated GFR > 60.0 Glucose 132 H Calcium 8.7 Total Bilirubin 0.80 AST 13 L ALT 15 Alkaline Phosphatase 54 Creatine Kinase Troponin I 0.052 H* NT-Pro-B Natriuret Pep Serum Total Protein 6.5 Albumin 3.9 Influenza Type A Ag Influenza Type B Ag RSV (PCR) SARS-CoV-2 (PCR) 04/20/22 04/20/22 04/20/22 19:35 17:20 15:15 WBC RBC Hgb Hct MCV MCH MCHC RDW Plt Count MPV Gran % Immature Gran % (Auto) Nucleat RBC Rel Count Eos # (Auto) Immature Gran # (Auto) Absolute Lymphs (auto) Absolute Monos (auto) Absolute Nucleated RBC Lymphocytes % Monocytes % Eosinophils % Basophils % Absolute Granulocytes Basophils # Sodium Potassium Chloride Carbon Dioxide Anion Gap BUN Creatinine Estimated GFR Glucose Calcium Total Bilirubin AST ALT Alkaline Phosphatase Creatine Kinase Troponin I 0.057 H* 0.051 H* NT-Pro-B Natriuret Pep Serum Total Protein Albumin Influenza Type A Ag NEGATIVE Influenza Type B Ag NEGATIVE RSV (PCR) NEGATIVE SARS-CoV-2 (PCR) NEGATIVE 04/20/22 04/20/22 15:15 15:15 WBC 12.4 H RBC 4.64 Hgb 13.9 Hct 41.3 MCV 89.0 MCH 30.0 MCHC 33.7 RDW 12.4 Plt Count 280 MPV 10.6 Gran % 86.4 H Immature Gran % (Auto) 1.0 H Nucleat RBC Rel Count 0.0 Eos # (Auto) 0 Immature Gran # (Auto) 0.13 H Absolute Lymphs (auto) 1.10 Absolute Monos (auto) 0.44 Absolute Nucleated RBC 0.00 Lymphocytes % 8.9 L Monocytes % 3.6 Eosinophils % 0.0 Basophils % 0.1 Absolute Granulocytes 10.71 H Basophils # 0.01 Sodium 139 Potassium 3.7 Chloride 103 Carbon Dioxide 29 Anion Gap 10.9 BUN 25 H Creatinine 0.89 Estimated GFR > 60.0 Glucose 113 H Calcium 9.2 Total Bilirubin 0.90 AST 19 ALT 17 Alkaline Phosphatase 66 Creatine Kinase 61 Troponin I NT-Pro-B Natriuret Pep 225 Serum Total Protein 7.5 Albumin 4.5 Influenza Type A Ag Influenza Type B Ag RSV (PCR) SARS-CoV-2 (PCR) Orders (Last 24 hours) Category Date Time Status Bedrest ROUTINE Activity 04/20/22 18:29 Active Up With Assistance ROUTINE Activity 04/20/22 18:29 Active Code Status Order ROUTINE Care 04/20/22 18:29 Active EKG-ER Only STAT Care 04/20/22 15:26 Completed Fall Protocol Q1H Care 04/20/22 18:29 Active IV Care Q6H Care 04/20/22 18:[address] in Observation ROUTINE Care 04/20/22 18:29 Active Telemetry q4h Care 04/20/22 16:25 Completed Telemetry q6h Care 04/20/22 18:22 Active Weight,Daily 0600 Care 04/20/22 18:29 Active Heart-Healthy Diet Diet 04/21/22 Breakfast Active CHEST 1 VIEW (PORTABLE) Stat Exams 04/20/22 15:26 Completed CBC W DIFF AM.LAB Lab 04/21/22 05:36 Completed CBC W DIFF Stat Lab 04/20/22 15:15 Completed CK-Creatinine Phosphokinase Stat Lab 04/20/22 15:15 Completed CMP AM.LAB Lab 04/21/22 05:36 Completed CMP Stat Lab 04/20/22 15:15 Completed COVID/FLU/RSV Panel Stat Lab 04/20/22 17:20 Completed NT PRO BNP Stat Lab 04/20/22 15:15 Completed TROPONIN Q4H Lab 04/20/22 15:15 Completed TROPONIN Q4H Lab 04/20/22 19:35 Completed TROPONIN Q4H Lab 04/20/22 23:15 Completed Acetaminophen 325 mg [Tylenol 325 mg] Med 04/20/22 18:29 Active 650 mg PO Q4H PRN PRN Albuterol/Ipratropium 3ml Neb* [DUONEB 0.5-3 MG/3 ml Med 04/20/22 18:29 Discontinued Neb] 3 ml IH Q4HPRN PRN Amlodipine/Benzapril 5/10 mg [Lotrel 5/10 MG] Med 04/21/22 10:00 Active 2 cap PO DAILY Aspirin 81 gm Chew [Baby Aspirin 81 mg Chew] Med 04/20/22 17:01 Discontinued 324 mg .ROUTE .STK-MED ONE Aspirin 81 gm Chew [Baby Aspirin 81 mg Chew] Med 04/20/22 16:58 Discontinued 324 mg PO STAT ONE Clonidine HCl 0.1 mg [Clonidine 0.1 mg Tablet] Med 04/20/22 15:37 Discontinued 0.1 mg .ROUTE .STK-MED ONE Clonidine HCl 0.1 mg [Clonidine 0.1 mg Tablet] Med 04/20/22 15:27 Discontinued 0.1 mg PO STAT ONE Enoxaparin Sodium [Enoxaparin Sodium] Med 04/21/22 10:00 Active 40 mg SQ DAILY Famotidine 20 mg [Pepcid 20 MG] Med 04/21/22 07:25 Active 20 mg PO BID PRN PRN Famotidine 20 mg [Pepcid 20 MG] Med 04/20/22 21:00 Discontinued 20 mg PO ONCE ONE Labetalol HCl 20 mg/4 ml [Trandate 20 mg/4 ml Med 04/20/22 20:00 Discontinued Syringe] 10 mg IV Q8H Labetalol HCl 20 mg/4 ml [Trandate 20 mg/4 ml Med 04/21/22 06:50 Active Syringe] 10 mg IV Q8H PRN PRN Labetalol HCl 20 mg/4 ml [Trandate 20 mg/4 ml Med 04/20/22 19:49 Discontinued Syringe] 20 mg IV .[facility] ONE Loperamide HCl 2 mg [Imodium 2 mg] Med 04/21/22 07:25 Active See Dose Instructions PO QID PRN PRN Morphine Sulfate 2 mg Inj Med 04/20/22 18:29 Active 2 mg IV Q4H PRN PRN Ondansetron HCl 4 mg/2 ml [Zofran 4 MG/2 ML VIAL] Med 04/20/22 18:29 Active 4 mg IV Q6H PRN PRN PANTOPRAZOLE 40 mg Tablet [Protonix 40MG Tablet] Med 04/21/22 10:00 Active 40 mg PO DAILY Pantoprazole 40 mg [Protonix 40 mg IV] Med 04/21/22 10:00 Discontinued 40 mg IV Q24H10 Potassium Chloride 20Meq/100Ml [POTASSIUM CHLORIDE 20 Med 04/20/22 16:30 Discontinued mEq IN WATER 100ML] 20 meq in 100 ml IV Q2H Potassium Chloride Tab* [Klor Con] Med 04/20/22 16:25 Discontinued 40 meq PO STAT ONE Respiratory Therapy Assessment DAILY RT 04/20/22 20:34 Completed Patient Care Notes (Last 24 hours) 04/20/22 20:48 Respiratory Note by Prashant Garibay PT DENIES ANY RESP HX AND OR USE OF RESP MEDS, PT USES [employer] ESSENTIAL OILS TO HELP W/ UNDIAGNOSED CASSIDY. NO SOB, WHEEZING, OR DISTRESS NOTED, WILL CANCEL PRN TX, NOT INDICATED AT THIS TIME. Initialized on 04/20/22 20:48 - END OF NOTE Code(s): I10 - ESSENTIAL (PRIMARY) HYPERTENSION (2) Elevated troponin Current Visit: Yes Status: Resolved Code(s): R77.8 - OTHER SPECIFIED ABNORMALITIES OF PLASMA PROTEINS
[2022-04-22] MEDS: Lotrel 5/10 MG PO SCH ×2 (09:28→13:01)
[2022-04-22] MEDS: ENOXAPARIN SODIUM SQ SCH (09:29)
[2022-04-22] MEDS: Protonix 40MG Tablet PO SCH (09:29)
[2022-04-22 12:32] VITALS: BP 138/84; PULSE 76; O2SAT 96
--- NOTE | 2022-04-22 13:24 | PCM.DS ---
Discharge Summary Date of Admission: 04/20/22 18:22 Admitting Physician: LISA HUNTER Primary Care Provider: NO FAMILY DOCTOR Allergies Allergies No Known Drug Allergies Allergy (Verified 04/20/22 14:51) Hospital Summary - Hospital Course Hospital Course: Chief Complaint Diagnosis c/o very high blood pressure Allergies Allergy/AdvReac Type Severity Reaction Status Date / Time No Known Drug Allergies Allergy Verified 04/20/22 14:51 Vital Signs (Last 24 hours) Temp Pulse Resp BP Pulse Ox 04/22/22 12:00 97.1 F 76 16 138/84 96 04/22/22 07:46 97.8 F 68 16 172/93 97 04/22/22 04:00 97.6 F 67 20 169/88 95 04/21/22 23:55 97.7 F 80 18 122/69 96 04/21/22 20:00 97.3 F 83 20 168/85 97 04/21/22 16:00 97.7 F 90 19 137/88 97 Home Medications Medication Instructions Recorded Confirmed Last Taken Type Famotidine [Pepcid] 20 mg PO BID PRN 04/20/22 04/20/22 04/20/22 History Loperamide HCl 2 mg [Imodium 2 2 - 4 mg PO QID PRN 04/20/22 04/20/22 04/19/22 History mg] Acetaminophen 325 mg [Tylenol 650 mg PO Q4H PRN PRN tablet 04/22/22 Unknown Rx 325 mg] Amlodipine Besylate/Benazepril 1 each PO DAILY 60 Days #60 cap 04/22/22 Unknown Rx [Amlodipine-Benazepril 10-20 mg] Current Medications Generic Name Dose Route Start Last Admin Trade Name Freq PRN Reason Stop Dose Admin Acetaminophen 650 mg 04/20/22 18:29 04/22/22 09:36 Acetaminophen 325 Mg Tablet PO 05/20/22 18:28 650 mg Q4H PRN PRN Administration PAIN AND/OR FEVER Amlodipine/Benazepril HCl 2 cap 04/21/22 10:00 04/22/22 13:01 Amlodipine/Benzapril 5mg/10mg Capsule PO 05/21/22 09:59 2 cap DAILY CRISS Administration Enoxaparin Sodium 40 mg 04/21/22 10:00 04/22/22 09:29 Enoxaparin Sodium 40 Mg/0.4 Ml Syringe SQ 05/21/22 09:59 40 mg DAILY CRISS Administration Famotidine 20 mg 04/21/22 07:25 Famotidine 20 Mg Tablet PO 05/21/22 07:24 BID PRN PRN STOMACH UPSET Labetalol HCl 10 mg 04/21/22 06:50 Labetalol Hcl 20 Mg/4 Ml Disp.Syringe IV 05/21/22 06:48 Q8H PRN PRN ELEVATED BLOOD PRESSURE Loperamide HCl 0 mg 04/21/22 07:25 Loperamide Hcl 2 Mg Capsule PO 05/21/22 07:24 QID PRN PRN DIARRHEA Morphine Sulfate 2 mg 04/20/22 18:29 Morphine Sulfate 2 Mg/Ml Inj IV 04/25/22 18:28 Q4H PRN PRN PAIN Ondansetron HCl 4 mg 04/20/22 18:29 Ondansetron Hcl 4 Mg/2 Ml Vial IV 05/20/22 18:28 Q6H PRN PRN NAUSEA/VOMITING Pantoprazole Sodium 40 mg 04/21/22 10:00 04/22/22 09:29 Protonix (Pantoprazole) 40 Mg Tablet PO 05/21/22 09:59 40 mg DAILY CRISS Administration Discontinued Medications Generic Name Dose Route Start Last Admin Trade Name Freq PRN Reason Stop Dose Admin Albuterol/Ipratropium 3 ml 04/20/22 18:29 Ipratropium/Albuterol Sulfate 3 Ml Ampul.Neb IH 05/20/22 18:28 Q4HPRN PRN SHORTNESS OF BREATH/WHEEZING Aspirin 324 mg 04/20/22 16:58 04/20/22 17:04 Aspirin 81 Mg Tab.Chew PO 04/20/22 16:59 324 mg STAT ONE Administration Aspirin Confirm 04/20/22 17:01 Aspirin 81 Mg Tab.Chew Administered 04/20/22 17:02 Dose 324 mg .ROUTE .STK-MED ONE Clonidine 0.1 mg 04/20/22 15:27 04/20/22 15:42 Clonidine Hcl 0.1 Mg Tablet PO 04/20/22 15:28 0.1 mg STAT ONE Administration Clonidine Confirm 04/20/22 15:37 Clonidine Hcl 0.1 Mg Tablet Administered 04/20/22 15:38 Dose 0.1 mg .ROUTE .STK-MED ONE Famotidine 20 mg 04/20/22 21:00 04/20/22 21:02 Famotidine 20 Mg Tablet PO 04/20/22 21:01 20 mg ONCE ONE Administration Potassium Chloride 20 meq in 100 mls @ 50 mls/hr 04/20/22 16:30 04/20/22 18:18 Potassium Chloride 20 Meq In Water 100ml IV 04/20/22 20:29 50 mls/hr Q2H CRISS Administration Labetalol HCl 10 mg 04/20/22 20:00 04/21/22 06:50 Labetalol Hcl 20 Mg/4 Ml Disp.Syringe IV 05/20/22 19:59 Not Given Q8H CRISS Labetalol HCl Confirm 04/20/22 19:49 Labetalol Hcl 20 Mg/4 Ml Disp.Syringe Administered 04/20/22 19:50 Dose 20 mg IV .STK-MED ONE Pantoprazole Sodium 40 mg 04/21/22 10:00 Pantoprazole 40 Mg Vial IV 05/21/22 09:59 Q24H10 [facility] Potassium Chloride 40 meq 04/20/22 16:25 04/20/22 16:31 Potassium Chloride Tab 10 Meq Tab PO 04/20/22 16:26 Not Given STAT ONE Intake & Output (Last 24 hours) 04/20/22 04/21/22 04/22/22 04/23/22 11:59 11:59 11:59 11:59 Intake Total 1080 1280 Balance 1080 1280 Weight 109.1 kg 107.9 kg Orders (Last 24 hours) Category Date Time Status Discharge Routine Discharge 04/22/22 Ordered Patient Care Notes (Last 24 hours) 04/21/22 16:02 Nursing Note by Haylie Gandara ambulating in halls Initialized on 04/21/22 16:02 - END OF NOTE - Vitals & Intake/Output Vital Signs: Vital Signs Temperature 97.1 F 04/22/22 12:00 Pulse Rate 76 04/22/22 12:00 Respiratory Rate 16 04/22/22 12:00 Blood Pressure 138/84 04/22/22 12:00 O2 Sat by Pulse Oximetry 96 04/22/22 12:00 Intake & Output: Intake & Output 04/20/22 04/21/22 04/22/22 04/23/22 11:59 11:59 11:59 11:59 Intake Total 1080 1280 Balance 1080 1280 Weight 109.1 kg 107.9 kg - Lab Result Diagrams: 04/21/22 05:36 04/21/22 05:36 - Radiology Exams Ordered Rad Exams-Entire Visit: Radiology Procedures Category Date Time Status CHEST 1 VIEW (PORTABLE) Stat Exams 04/20/22 15:26 Completed - Procedures and Test Procedures and Tests throughout Hospitalization: Therapy Orders & Screens 04/20/22 20:34 Respiratory Therapy Assessment DAILY Comment: Diagnosis: Uncontrolled hypertension Discharge Exam General Appearance: no apparent distress, alert Neurologic Exam: alert, oriented x 3, cooperative, normal mood/affect, nml cerebellar function, sensation nml, No motor deficits Eye Exam: PERRL, EOMI, eyes nml inspection Ears, Nose, Throat Exam: normal ENT inspection, pharynx normal, moist mucous membranes Neck Exam: normal inspection, non-tender, supple, full range of motion Respiratory Exam: normal breath sounds, lungs clear, No respiratory distress Cardiovascular Exam: regular rate/rhythm, normal heart sounds Gastrointestinal/Abdomen Exam: soft, No tenderness, No mass Pelvic Exam: deferred Rectal Exam: deferred Back Exam: normal inspection, normal range of motion, No CVA tenderness, No vertebral tenderness Extremity Exam: normal inspection, normal range of motion Skin Exam: normal color, warm, dry Final Diagnosis/Problem List - Final Discharge Diagnosis/Problem (1) Uncontrolled hypertension Current Visit: Yes Status: Acute Onset Date: ~04/20/22 Assessment & Plan: Last Vital Signs Temp 97.1 F 04/22/22 12:00 Pulse 76 04/22/22 12:00 Resp 16 04/22/22 12:00 BP 138/84 04/22/22 12:00 Pulse Ox 96 04/22/22 12:00 Allergies No Known Drug Allergies Allergy (Verified 04/20/22 14:51) Active Medications Acetaminophen (Acetaminophen 325 Mg Tablet) 650 mg PO Q4H PRN PRN PRN Reason: PAIN AND/OR FEVER Stop: 05/20/22 18:28 Last Admin: 04/22/22 09:36 Dose: 650 mg Amlodipine/Benazepril HCl (Amlodipine/Benzapril 5mg/10mg Capsule) 2 cap PO DAILY CRISS Stop: 05/21/22 09:59 Last Admin: 04/22/22 13:01 Dose: 2 cap Enoxaparin Sodium (Enoxaparin Sodium 40 Mg/0.4 Ml Syringe) 40 mg SQ DAILY CRISS Stop: 05/21/22 09:59 Last Admin: 04/22/22 09:29 Dose: 40 mg Famotidine (Famotidine 20 Mg Tablet) 20 mg PO BID PRN PRN PRN Reason: STOMACH UPSET Stop: 05/21/22 07:24 Labetalol HCl (Labetalol Hcl 20 Mg/4 Ml Disp.Syringe) 10 mg IV Q8H PRN PRN PRN Reason: ELEVATED BLOOD PRESSURE Stop: 05/21/22 06:48 Loperamide HCl (Loperamide Hcl 2 Mg Capsule) 0 mg PO QID PRN PRN PRN Reason: DIARRHEA Stop: 05/21/22 07:24 Morphine Sulfate (Morphine Sulfate 2 Mg/Ml Inj) 2 mg IV Q4H PRN PRN PRN Reason: PAIN Stop: 04/25/22 18:28 Ondansetron HCl (Ondansetron Hcl 4 Mg/2 Ml Vial) 4 mg IV Q6H PRN PRN PRN Reason: NAUSEA/VOMITING Stop: 05/20/22 18:28 Pantoprazole Sodium (Protonix (Pantoprazole) 40 Mg Tablet) 40 mg PO DAILY CRISS Stop: 05/21/22 09:59 Last Admin: 04/22/22 09:29 Dose: 40 mg Intake & Output 04/22/22 04/23/22 11:59 11:59 Intake Total 1280 Balance 1280 Weight 107.9 kg Orders 04/22/22 Discharge Routine Code(s): I10 - ESSENTIAL (PRIMARY) HYPERTENSION (2) Elevated troponin Current Visit: Yes Status: Resolved Code(s): R77.8 - OTHER SPECIFIED ABNORMALITIES OF PLASMA PROTEINS - Discharge Discharge Date: 04/22/22 Disposition: Home, Self-Care Condition: Stable Prescriptions: New Acetaminophen 325 mg [Tylenol 325 mg] 650 mg PO Q4H PRN PRN tablet PRN Reason: Pain And/Or Fever Amlodipine Besylate/Benazepril [Amlodipine-Benazepril 10-20 mg] 1 each PO DAILY 60 Days #60 cap Continue Famotidine [Pepcid] 20 mg PO BID PRN PRN Reason: Stomach Upset Loperamide HCl 2 mg [Imodium 2 mg] 2 - 4 mg PO QID PRN PRN Reason: Diarrhea Instructions: High Blood Pressure (DC), Amlodipine and Benazepril Follow up with: LISA HUNTER MD [ACTIVE STAFF] - 5 Days Forms: Discharge Instructions
== END 2022-04-22 13:03 | disposition home or self-care (01) ==
LOC: ED 14:44 → MED SURG 18:22
PROVIDERS: ADMIT General Practice; ATTEND General Practice
DX: I10 Essential (primary) hypertension (principal); R77.8 Other specified abnormalities of plasma proteins; M19.90 Unspecified osteoarthritis, unspecified site; Z20.828 Contact with and (suspected) exposure to other viral communicable diseases; Z85.038 Personal history of other malignant neoplasm of large intestine
CPT/HCPCS: 0241U; 36415; 71045; 80053; 82550; 83880; 84484; 85025; 93005; 99284; 93268; J1650; J3480; A9270-GY; G0378

== ENCOUNTER 2023-02-13 12:20 | Day surgery (SDC) | payer OTHER ==
[2023-02-13] MEDS ORDERED: LIDOCAINE HCL 2% 100 MG/5 ML IJ ONE (12:21)
[2023-02-13 13:13] LABS: HCG URINE TEST NEGATIVE (NEGATIVE)
[2023-02-13] MEDS ORDERED: DIPRIVAN 200 MG/20 ML IV ONE (14:15)
[2023-02-13] MEDS ORDERED: Lactated Ringers 1,000 ML IV ONE (14:34)
--- NOTE | 2023-02-13 15:05 | XRAY ---
Indication: Bilateral L4-S1 MBB. Intraoperative fluoroscopy provided for 19 seconds. Single digital spot image submitted for interpretation demonstrates posterior needle tips projecting over the expected left and right L4-S1 nerve roots. Correlate with intraoperative findings/report.
--- NOTE | 2023-02-13 17:34 | XRAY ---
19 second of fluoroscopy was used in surgery for a bilateral L4-S1 MBB.
== END 2023-02-13 14:56 | disposition home or self-care (01) ==
LOC: SDC-PAIN 12:20
PROVIDERS: ATTEND Psychiatry & Neurology Pain Medicine
DX: M47.816 Spondylosis without myelopathy or radiculopathy, lumbar region (principal); Z79.899 Other long term (current) drug therapy
CPT/HCPCS: 64493; 64494; 72020; 77002; 81025; J2704

== ENCOUNTER 2023-05-01 12:07 | Day surgery (SDC) | payer OTHER ==
[2023-05-01] MEDS ORDERED: BUPIVACAINE 0.5% VIAL IJ ONE (12:08)
[2023-05-01] MEDS ORDERED: LIDOCAINE HCL 1% 50 MG/5 ML VL PF IJ ONE (12:08)
[2023-05-01 14:00] LABS: HCG URINE TEST NEGATIVE (NEGATIVE)
[2023-05-01] MEDS ORDERED: DIPRIVAN 200 MG/20 ML IV ONE (15:27)
--- NOTE | 2023-05-01 16:55 | XRAY ---
Indication: Left L4-S1 RFA. Intraoperative fluoroscopy provided for 25 seconds. 4 digital spot images submitted for interpretation demonstrates posterior needle tips projecting over the expected left L4-S1 nerve roots. Correlate with intraoperative findings/report.
--- NOTE | 2023-05-01 17:05 | XRAY ---
25 seconds of fluoroscopy was used in surgery for a left L4-S1 RFA.
[2023-05-01] MEDS ORDERED: Lactated Ringers 1,000 ML IV ONE (19:04)
== END 2023-05-01 15:58 | disposition home or self-care (01) ==
LOC: SDC-PAIN 12:07
PROVIDERS: ATTEND Psychiatry & Neurology Pain Medicine
DX: M47.816 Spondylosis without myelopathy or radiculopathy, lumbar region (principal); Z79.899 Other long term (current) drug therapy
CPT/HCPCS: 64635; 64636; 72100; 77002; 81025; J2001; J2704

== ENCOUNTER 2023-05-08 13:07 | Day surgery (SDC) | payer OTHER ==
[2023-05-08] MEDS ORDERED: BUPIVACAINE 0.5% VIAL IJ ONE (13:08)
[2023-05-08] MEDS ORDERED: XYLOCAINE-MPF 1% 5ML SDV IJ ONE (13:08)
[2023-05-08 13:29] LABS: HCG URINE TEST NEGATIVE (NEGATIVE)
[2023-05-08] MEDS ORDERED: DIPRIVAN 200 MG/20 ML IV ONE (14:40)
[2023-05-08] MEDS ORDERED: Lactated Ringers 1,000 ML IV ONE (15:39)
--- NOTE | 2023-05-08 17:15 | XRAY ---
Indication: Right L4-S1 RFA. Intraoperative fluoroscopy provided for 29 seconds. 6 digital spot images submitted for interpretation demonstrates posterior needle tips projecting over the right L4-S1 nerve roots. Correlate with intraoperative findings/report.
--- NOTE | 2023-05-08 17:41 | XRAY ---
29 seconds of fluoroscopy was used in surgery for a right L4-S1 RFA.
== END 2023-05-08 15:13 | disposition home or self-care (01) ==
LOC: SDC-PAIN 13:07
PROVIDERS: ATTEND Psychiatry & Neurology Pain Medicine
DX: M54.16 Radiculopathy, lumbar region (principal)
CPT/HCPCS: 64635; 64636; 72100; 77002; 81025; J2704

== ENCOUNTER 2024-07-01 06:23 | Day surgery (SDC) | payer OTHER ==
[2024-07-01 07:36] LABS: HCG URINE TEST NEGATIVE (NEGATIVE)
--- NOTE | 2024-07-01 10:07 | XRAY ---
Indication: Right knee injection. Intraoperative fluoroscopy provided for 6 seconds. Single digital spot image submitted for interpretation demonstrates needle tip projecting over right femur intercondylar notch. Small amount of contrast injected for needle tip placement. Correlate with intraoperative findings/report.
--- NOTE | 2024-07-01 10:08 | XRAY ---
Indication: Left knee injection. Intraoperative fluoroscopy provided for 5 seconds. Single digital spot image submitted for interpretation demonstrates needle tip projecting over left femur intercondylar notch. Small amount of contrast injected for needle tip placement. Correlate with intraoperative findings/report.
--- NOTE | 2024-07-01 10:40 | XRAY ---
6 seconds of fluoroscopy was used in surgery for a right intra-articular knee injection.
--- NOTE | 2024-07-01 10:41 | XRAY ---
5 seconds of fluoroscopy was used in surgery for a left intra-articular knee injection.
== END 2024-07-01 09:06 | disposition home or self-care (01) ==
LOC: SDC-PAIN 06:23
PROVIDERS: ATTEND Psychiatry & Neurology Pain Medicine
DX: M17.0 Bilateral primary osteoarthritis of knee (principal)
CPT/HCPCS: 20610; 73560; 77002; 81025; Q9966

== ENCOUNTER 2024-07-08 13:08 | Day surgery (SDC) | payer OTHER ==
[2024-07-08] MEDS ORDERED: SYNVISC 16 MG/2 ML SYRINGE IU ONE (13:09)
[2024-07-08] MEDS ORDERED: LIDOCAINE HCL 1% AMPUL 5 ML IJ ONE (13:09)
[2024-07-08 13:17] LABS: HCG URINE TEST NEGATIVE (NEGATIVE)
--- NOTE | 2024-07-08 14:43 | XRAY ---
Indication: Left knee injection. Intraoperative fluoroscopy provided for 4 seconds. Single digital spot image submitted for interpretation demonstrates needle tip projecting over left femur intercondylar notch. Small amount of contrast injected for needle tip placement. Correlate with intraoperative findings/report.
--- NOTE | 2024-07-08 14:43 | XRAY ---
Indication: Right knee injection. Intraoperative fluoroscopy provided for 7 seconds. Single digital spot image submitted for interpretation demonstrates needle tip projecting over right femur intercondylar notch. Small amount of contrast injected for needle tip placement. Correlate with intraoperative findings/report.
--- NOTE | 2024-07-08 14:51 | XRAY ---
4 seconds of fluoroscopy was used in surgery for a left intra-articular knee injection.
--- NOTE | 2024-07-08 14:52 | XRAY ---
7 seconds of fluoroscopy was used in surgery for a right intra-articular knee injection.
== END 2024-07-08 14:16 | disposition home or self-care (01) ==
LOC: SDC-PAIN 13:08
PROVIDERS: ATTEND Psychiatry & Neurology Pain Medicine
DX: M17.0 Bilateral primary osteoarthritis of knee (principal)
CPT/HCPCS: 20610; 73560; 77002; 81025; J7325; Q9966

== ENCOUNTER 2024-07-15 05:57 | Day surgery (SDC) | payer OTHER ==
[2024-07-15] MEDS ORDERED: GELSYN-3 IU ONE (05:58)
[2024-07-15] MEDS ORDERED: LIDOCAINE HCL 1% AMPUL 5 ML IJ ONE (05:58)
[2024-07-15 07:16] LABS: HCG URINE TEST NEGATIVE (NEGATIVE)
--- NOTE | 2024-07-15 09:38 | XRAY ---
Indication: Right knee injection. Intraoperative fluoroscopy provided for 4 seconds. Single digital spot image submitted for interpretation demonstrates needle tip projects over right femur intercondylar notch. Small amount of contrast injected for needle tip placement. Correlate with intraoperative findings/report.
--- NOTE | 2024-07-15 09:38 | XRAY ---
Indication: Left knee injection. Intraoperative fluoroscopy provided for 2 seconds. Single digital spot image submitted for interpretation demonstrates needle tip projects over left femur intercondylar notch. Small amount of contrast injected for needle tip placement. Correlate with intraoperative findings/report.
--- NOTE | 2024-07-15 10:06 | XRAY ---
2 seconds of fluoroscopy was used in surgery for a left intra-articular knee injection.
--- NOTE | 2024-07-15 10:06 | XRAY ---
4 seconds of fluoroscopy was used in surgery for a right intra-articular knee injection.
== END 2024-07-15 08:45 | disposition home or self-care (01) ==
LOC: SDC-PAIN 05:57
PROVIDERS: ATTEND Psychiatry & Neurology Pain Medicine
DX: M16.0 Bilateral primary osteoarthritis of hip (principal)
CPT/HCPCS: 20610; 73560; 77002; 81025; J7328; Q9966